=== PATIENT | female | born 1985 | race Caucasian/White ===

== ENCOUNTER 2016-08-09 22:41 | Emergency (ER) | payer OTHER ==
[2016-08-09 23:22] LABS: BASO % 0.4 % (0.1-1.2); EOS # 0.3 10_X3_uL (0.0-0.4); GRAN # 5.5 10_X3_uL (1.6-6.1); GRAN % 55.8 % (34.0-71.1); HEMATOCRIT 41.6 % (34-45); HEMOGLOBIN 13.8 g/dL (11.2-15.7); LYMPH # 3.4 10_X3_uL (1.2-3.7); LYMPH % 34.3 % (19.3-51.7); MEAN CORPUSCULAR HEMOGLOBIN 27.6 pg (27.0-33.0); MEAN CORPUSCULAR HGB CONC 33.2 g/dL (32.0-36.0); MEAN CORPUSCULAR VOLUME 83.2 fL (79-95); MONO # 0.7 10_X3_uL (0.2-0.9); MONO % 6.5 % (4.7-12.5); PLATELET COUNT 324 x10_3/uL (182-369); RED CELL DISTRIBUTION WIDTH 15.2 % (11.7-14.4); WHITE BLOOD COUNT 9.9 x10_3/uL (4.0-10.0)
[2016-08-09 23:32] LABS: BLOOD UREA NITROGEN 17 mg/dL (7-18); CALCIUM 8.8 mg/dL (8.7-10.7); CARBON DIOXIDE 28 mmol/L (21-32); CREATININE 0.8 mg/dL (0.6-1.3); GLUCOSE,RANDOM 146 mg/dL (70-99); POTASSIUM 3.5 mmol/L (3.5-5.1); SODIUM 137 mmol/L (136-145)
== END 2016-08-09 23:46 | disposition home or self-care (01) ==
LOC: ER 22:41
PROVIDERS: General Practice
DX: R07.89 Other chest pain (principal); H92.01 Otalgia, right ear; R51 Headache; E11.65 Type 2 diabetes mellitus with hyperglycemia; I10 Essential (primary) hypertension; E66.01 Morbid (severe) obesity due to excess calories; Z79.899 Other long term (current) drug therapy; Z88.2 Allergy status to sulfonamides; Z88.8 Allergy status to other drugs, medicaments and biological substances
CPT/HCPCS: 36415; 80048; 82009; 83036; 85025; 93005; 99284; 99284-25